=== PATIENT | male | born 1940 | race Caucasian/White ===

== ENCOUNTER 2018-10-15 07:33 | Day surgery (SDC) | payer OTHER, MEDICARE ==
[2018-10-14 08:28] VITALS: BMI 22.1
[~2018-10-15 07:33] MED LIST: ACETAMINOPHEN 325 MG TABLET (FP) PO PRN; CYCLOPENTOLATE HCL 1% OPHTH SOLN 2 ML BOTTLE OP SCH; KETOROLAC TROMETHAMINE 0.5% EYE DROP 1 DROP DROPS OP SCH; OFLOXACIN 0.3% OPHTHALMIC SOLUTION 5 ML BOTTLE OP SCH; PHENYLEPHRINE 2.5% OPHTH SOLN 15 ML BOTTLE OP SCH; TROPICAMIDE 1% OPHTH SOLN 15 ML BOTTLE OP SCH
[2018-10-15] MEDS ORDERED: PHENYLEPHRINE/KETOROLAC 4 ML VIAL IO ONE ×2 (07:45→09:21)
[2018-10-15 07:56] VITALS: BP 137/86
[2018-10-15] MEDS ORDERED: CYCLOPENTOLATE HCL 1% OPHTH SOLN 2 ML BOTTLE ONE (07:56)
[2018-10-15] MEDS ORDERED: OFLOXACIN 0.3% OPHTHALMIC SOLUTION 5 ML BOTTLE ONE (07:56)
[2018-10-15] MEDS ORDERED: PHENYLEPHRINE 2.5% OPHTH SOLN 15 ML BOTTLE ONE (07:56)
[2018-10-15] MEDS ORDERED: KETOROLAC TROMETHAMINE 0.5% EYE DROP 1 DROP DROPS ONE (07:57)
[2018-10-15] MEDS ORDERED: TROPICAMIDE 1% OPHTH SOLN 15 ML BOTTLE ONE (07:57)
[2018-10-15] MEDS ORDERED: MIDAZOLAM HCL 2 MG/2 ML SINGLE DOSE VIAL ONE (08:32)
[2018-10-15] MEDS ORDERED: TETRACAINE 0.5% OPHTH SOLN 2 ML BOTTLE OD ONE (09:06)
[2018-10-15] MEDS ORDERED: POVIDONE-IODINE 5% OPHTHALMIC PREP 30 ML SOLUTION OD ONE (09:08)
[2018-10-15] MEDS ORDERED: CHONDROITIN SU A/HYALUR SOD 1 KIT IO ONE (09:15)
[2018-10-15] MEDS ORDERED: BSS (NA/CA/MG/K) BALANCED SALT SOLUTION OPHTH SOLN 15 ML BOTTLE OD ONE (09:15)
[2018-10-15] MEDS ORDERED: LIDOCAINE HCL 1% PRESERVATIVE FREE - 30ML VIAL IO ONE (09:15)
--- NOTE | 2018-10-15 10:09 | SPEC ---
DATE OF SURGERY: 10/15/2018 OPERATION: Phacoemulsification with posterior chamber intraocular lens implantation, right eye. Lens used [id number], 20.5 Diopter power, Serial No. [id number]. PREOPERATIVE DIAGNOSIS: Cataract, right eye. POSTOPERATIVE DIAGNOSIS: Cataract, right eye. SURGEON: Marcus Freeman M.D. ANESTHESIA: Topical MAC. COMPLICATIONS: None. PROCEDURE: The patient was brought to the operating room and correctly identified along with the operative site and the correct intraocular lens roa. The patient was then prepped and draped in the usual sterile fashion including 5% Betadine solution in the conjunctival sac and an eyelid drape. An eyelid speculum was then placed in the eye. A paracentesis port was created and approximately 0.5 mL of preservative free Lidocaine was then injected into the eye. Viscoelastic was then injected to inflate the anterior chamber. A temporal clear corneal wound was created. A continuous circular capsulorrhexis was performed. The nucleus was then hydrodissected with BSS and removed with phacoemulsification. The remaining cortical material was irrigated and aspirated. Viscoelastic was injected to inflate the capsular bag and the intraocular lens was then implanted into the capsular bag. The remaining Viscoelastic was irrigated and aspirated from the eye. The IOL was noted to be well centered and completely covered by the anterior capsulorrhexis. Topical vancomycin was placed and the eye patched and shielded. All wounds were tested and found to be watertight. No suture was placed. The eye was then shielded. The patient was then discharged from the operating room in stable condition. MARCUS FREEMAN M.D. [id number]
[2018-10-15 14:18] VITALS: PULSE 85
[2018-10-15 15:23] VITALS: TEMP 98
== END 2018-10-15 11:15 | disposition home or self-care (01) ==
LOC: JASU-SURG 07:33
PROVIDERS: ATTEND Ophthalmology
PROC: 08RJ3JZ Replacement of Right Lens with Synthetic Substitute, Percutaneous Approach (ICD-10-PCS; principal; 2018-10-15 09:00)
DX: H26.9 Unspecified cataract (principal)
CPT/HCPCS: C9447

== ENCOUNTER 2018-11-05 10:38 | Day surgery (SDC) | payer OTHER, MEDICARE ==
[2018-11-03 12:48] VITALS: BMI 22.1
[~2018-11-05 10:38] MED LIST changes: +CHONDROITIN SU A/HYALUR SOD 1 KIT IO ONE; -CYCLOPENTOLATE HCL 1% OPHTH SOLN 2 ML BOTTLE OP SCH; +EPINEPHrine/PF 1 MG/1 ML (1:1,000) AMPULE SQ ONE; -KETOROLAC TROMETHAMINE 0.5% EYE DROP 1 DROP DROPS OP SCH; +LIDOCAINE HCL 1% PRESERVATIVE FREE - 30ML VIAL IO ONE; -OFLOXACIN 0.3% OPHTHALMIC SOLUTION 5 ML BOTTLE OP SCH; -PHENYLEPHRINE 2.5% OPHTH SOLN 15 ML BOTTLE OP SCH; +PHENYLEPHRINE/KETOROLAC 4 ML VIAL IO ONE; +TETRACAINE 0.5% OPHTH SOLN 2 ML BOTTLE TP ONE; -TROPICAMIDE 1% OPHTH SOLN 15 ML BOTTLE OP SCH; +VANCOMYCIN 500 MG VIAL (RESTRICTED TO ID ONLY) IVPB ONE
[2018-11-05] MEDS ORDERED: PHENYLEPHRINE 2.5% OPHTH SOLN 15 ML BOTTLE ONE (10:55)
[2018-11-05] MEDS ORDERED: OFLOXACIN 0.3% OPHTHALMIC SOLUTION 5 ML BOTTLE ONE (10:55)
[2018-11-05] MEDS ORDERED: KETOROLAC TROMETHAMINE 0.5% EYE DROP 1 DROP DROPS ONE (10:55)
[2018-11-05] MEDS ORDERED: TROPICAMIDE 1% OPHTH SOLN 15 ML BOTTLE ONE (10:55)
[2018-11-05] MEDS ORDERED: CYCLOPENTOLATE HCL 1% OPHTH SOLN 2 ML BOTTLE ONE (10:55)
[2018-11-05] MEDS: TROPICAMIDE 1% OPHTH SOLN 15 ML BOTTLE OP SCH ×3 (11:00→11:10)
[2018-11-05] MEDS: KETOROLAC TROMETHAMINE 0.5% EYE DROP 1 DROP DROPS OP SCH ×3 (11:00→11:10)
[2018-11-05] MEDS: OFLOXACIN 0.3% OPHTHALMIC SOLUTION 5 ML BOTTLE OP SCH ×3 (11:00→11:10)
[2018-11-05] MEDS: CYCLOPENTOLATE HCL 1% OPHTH SOLN 2 ML BOTTLE OP SCH ×3 (11:00→11:10)
[2018-11-05] MEDS: PHENYLEPHRINE 2.5% OPHTH SOLN 15 ML BOTTLE OP SCH ×3 (11:00→11:10)
[2018-11-05] MEDS ORDERED: MIDAZOLAM HCL 2 MG/2 ML SINGLE DOSE VIAL ONE (11:10)
[2018-11-05] MEDS ORDERED: LIDOCAINE HCL/PF 1% SDV 5ML VIAL ONE (11:16)
[2018-11-05] MEDS ORDERED: TETRACAINE 0.5% OPHTH SOLN 2 ML BOTTLE ONE (11:16)
[2018-11-05] MEDS ORDERED: CHONDROITIN SU A/HYALUR SOD 1 KIT ONE (11:17)
[2018-11-05] MEDS ORDERED: TETRACAINE 0.5% OPHTH SOLN 2 ML BOTTLE TP ONE (11:43)
[2018-11-05] MEDS ORDERED: LIDOCAINE HCL 1% PRESERVATIVE FREE - 30ML VIAL IO ONE (11:55)
[2018-11-05] MEDS ORDERED: CHONDROITIN SU A/HYALUR SOD 1 KIT IO ONE (11:56)
[2018-11-05] MEDS ORDERED: VANCOMYCIN 500 MG VIAL (RESTRICTED TO ID ONLY) IVPB ONE (12:18)
[2018-11-05 13:26] VITALS: BP 135/67; PULSE 69; TEMP 97.9
--- NOTE | 2018-11-05 15:19 | SPEC ---
DATE OF OPERATION: OPERATION: Phacoemulsification with posterior chamber intraocular lens implantation, left eye. Lens used SN60WF, 22.0 Diopter power, Serial No. [id number]. PREOPERATIVE DIAGNOSIS: Cataract, left eye. POSTOPERATIVE DIAGNOSIS: Cataract, left eye. SURGEON: Marcus Freeman M.D. ANESTHESIA: Topical MAC. COMPLICATIONS: None. PROCEDURE: The patient was brought to the operating room and correctly identified along with the operative site and the correct intraocular lens roa. The patient was then prepped and draped in the usual sterile fashion including 5% Betadine solution in the conjunctival sac and an eyelid drape. An eyelid speculum was then placed in the eye. A paracentesis port was created and approximately 0.5 mL of preservative free Lidocaine was then injected into the eye. Viscoelastic was then injected to inflate the anterior chamber. A temporal clear corneal wound was created. A continuous circular capsulorrhexis was performed. The nucleus was then hydrodissected with BSS and removed with phacoemulsification. The remaining cortical material was irrigated and aspirated. Viscoelastic was injected to inflate the capsular bag and the intraocular lens was then implanted into the capsular bag. The remaining Viscoelastic was irrigated and aspirated from the eye. The IOL was noted to be well centered and completely covered by the anterior capsulorrhexis. Topical vancomycin was placed and the eye patched and shielded. All wounds were tested and found to be watertight. No suture was placed. The eye was then shielded. The patient was then discharged from the operating room in stable condition. MARCUS FREEMAN M.D. [id number]
== END 2018-11-05 13:40 | disposition home or self-care (01) ==
LOC: JASU-SURG 10:38
PROVIDERS: ATTEND Ophthalmology
PROC: 08RK3JZ Replacement of Left Lens with Synthetic Substitute, Percutaneous Approach (ICD-10-PCS; principal; 2018-11-05 12:00)
DX: H26.9 Unspecified cataract (principal)

== ENCOUNTER 2019-04-14 12:29 | Emergency (ER) | payer OTHER, MEDICARE ==
[2019-04-14 12:37] VITALS: TEMP 98.4; BMI 23.3
[2019-04-14] MEDS ORDERED: LIDOCAINE 1%/EPI 1:100000 (20 ML MULTI DOSE VIAL) ONE (13:16)
[2019-04-14] MEDS ORDERED: LIDOCAINE 1%/EPI 1:100000 (50 ML MULTI DOSE VIAL) INF ONE (15:08)
--- NOTE | 2019-04-14 15:09 | PDOC ---
History of Present Illness <Maya Velazqueztylercristal - Last Filed: 04/14/19 15:10> - General History Source: Patient Exam Limitations: No Limitations <YajairaMaegan hurst - Last Filed: 04/15/19 10:49> - General Chief Complaint: Abscess Boil Stated Complaint: SENT BY PCP\ CYSTS UNDER RT ARM Time Seen by Provider: 04/14/19 12:43 Past History <Maya Velazqueztylercristal - Last Filed: 04/14/19 15:10> - Travel Traveled outside of the country in the last 30 days: No Close contact w/someone who was outside of country & ill: No - Past Medical History Anemia: No Asthma: No Cancer: Yes (SKIN CANCER REMOVAL HEAD) Cardiac Disorders: Yes (A-FIB) CVA: No COPD: No CHF: No Dementia: No Diabetes: No GI Disorders: No Disorders: No HTN: Yes Hypercholesterolemia: Yes Liver Disease: No Seizures: No Thyroid Disease: No - Surgical History Abdominal Surgery: No Appendectomy: No Cardiac Surgery: No Cholecystectomy: No Lung Surgery: No Neurologic Surgery: No Orthopedic Surgery: Yes (WRIST SX,KNEE INJECTIONS) - Immunization History Immunization Up to Date: No - Suicide/Smoking/Psychosocial Hx Smoking Status: No Smoking History: Never smoked Have you smoked in the past 12 months: No Number of Cigarettes Smoked Daily: 0 Information on smoking cessation initiated: No Hx Alcohol Use: No Drug/Substance Use Hx: No Substance Use Type: None Hx Substance Use Treatment: No <Maegan Pandya - Last Filed: 04/15/19 10:49> - Past Medical History Allergies/Adverse Reactions: Allergies Allergy/AdvReac Type Severity Reaction Status Date / Time No Known Allergies Allergy Verified 11/03/18 12:42 Home Medications: Ambulatory Orders Atenolol [Tenormin] 50 mg PO DAILY 07/08/12 Atorvastatin Ca [Lipitor] 20 mg PO ASDIR 07/08/12 Rivaroxaban [Xarelto -] 20 mg PO DAILY 10/14/18 Bupropion HCl [Wellbutrin Xl] 300 mg PO DAILY 11/05/18 Clonazepam [Klonopin] 1 mg PO DAILY 11/05/18 Tamsulosin HCl [Flomax] 0.4 mg PO DAILY 11/05/18 Acetaminophen [Tylenol -] 1,000 mg PO Q6H #30 tablet 04/14/19 Cephalexin Monohydrate [Keflex -] 500 mg PO TID #21 capsule 04/14/19 Sulfamethoxazole/Trimethoprim [Bactrim Ds -] 1 tab PO BID #14 tablet 04/14/19 Review of Systems - Review of Systems Able to Perform ROS?: Yes Comments:: 04/14/19 17:36 CONSTITUTIONAL: Absent: fever, chills, diaphoresis, generalized weakness, malaise, loss of appetite HEENT: Absent: rhinorrhea, nasal congestion, throat pain, throat swelling, difficulty swallowing, mouth swelling, ear pain, eye pain, visual Changes CARDIOVASCULAR: Absent: chest pain, loss of consciousness, palpitations, irregular heart rate, peripheral edema RESPIRATORY: Absent: cough, shortness of breath, dyspnea with exertion, orthopnea, wheezing, stridor, hemoptysis GASTROINTESTINAL: Absent: abdominal pain, abdominal distension, nausea, vomiting, diarrhea, constipation, melena, hematochezia GENITOURINARY: Absent: dysuria, frequency, urgency, hesitancy, hematuria, flank pain, genital pain MUSCULOSKELETAL: Absent: myalgia, arthralgia, joint swelling SKIN: Present: cellulitis/abscess Absent: itching, pallor HEMATOLOGIC/IMMUNOLOGIC: Absent: easy bleeding, easy bruising, lymphadenopathy, frequent infections ENDOCRINE: Absent: unexplained weight gain, unexplained weight loss, heat intolerance, cold intolerance NEUROLOGIC: Absent: headache, focal weakness or paresthesias, dizziness, unsteady gait, seizure, mental status changes, bladder or bowel incontinence PSYCHIATRIC: Absent: anxiety, depression, suicidal or homicidal ideation, hallucinations. Is the patient limited Estonian proficient: No <Maegan Pandya - Last Filed: 04/15/19 10:49> *Physical Exam - Vital Signs Last Vital Signs Temp Pulse Resp BP Pulse Ox 98.4 F 76 16 166/79 98 04/14/19 12:34 04/14/19 12:34 04/14/19 12:34 04/14/19 12:34 04/14/19 12:34 <Maya Velazquez - Last Filed: 04/14/19 15:10> - Vital Signs Last Vital Signs Temp Pulse Resp BP Pulse Ox 98.4 F 76 16 166/79 98 04/14/19 12:34 04/14/19 12:34 04/14/19 12:34 04/14/19 12:34 04/14/19 12:34 - Physical Exam Comments: 04/14/19 17:45 GENERAL: Well developed, well nourished. Awake and alert. No acute distress. HEENT: Normocephalic, atraumatic. PERRLA, EOMI. No conjunctival pallor. Sclera are non- icteric. Moist mucous membranes. Oropharynx is clear. NECK: Supple. Full ROM. No JVD. Carotid pulses 2+ and symmetric, without bruits. No thyromegaly. No lymphadenopathy. SKIN: [id number] fluctuant sebaceous cyst present to the R axilla, R lateral chest wall with overlying cellulitis. No active drainage. Warm and dry. Normal capillary refill. No rashes. No jaundice. NEUROLOGICAL: Alert, awake, appropriate. Cranial nerves 2-12 intact. No deficits to light touch and temperature in face, upper extremities and lower extremities. No motor deficits in the in face, upper extremities and lower extremities. Normoreflexic in the upper and lower extremities. Normal speech. Toes are down- going bilaterally. Gait is normal without ataxia. PSYCHIATRIC: Cooperative. Good eye contact. Appropriate mood and affect. <Maegan Pandya - Last Filed: 04/15/19 10:49> Medical Decision Making - Medical Decision Making 04/14/19 15:10 The patient was seen and evaluated in conjunction with midlevel provider under my direct supervision, ancillary studies were reviewed. I agree with the plan as outlined DEBRA Pandya HPI, workup/dispo as outlined. VS reviewed, wnl. Right lateral upper chest wall with very large infected-appearing cystic structure. Soft tissue ultrasound with 5 cm deep very large hypoechoic fluid collection with swirl sign consistent with large infected cyst versus abscess. We'll perform incision and drainage, packing and oral antibiotics including Keflex and Bactrim given overlying erythema. Procedures performed by DEBRA under my supervision, about 200 mL of fluid extracted via suction and manual compression area spoke with PMD, appropriate for follow-up. Today reevaluation of the wound and packing removal. Follow-up with surgery/dermatology to take care of the cystic wall to prevent recurrence. Patient and family amenable to impression and plan, wound care instructions <Maya Velazquez - Last Filed: 04/14/19 15:10> - Medical Decision Making 04/14/19 17:43 HPI: The patient is an 78 y/o M with PMH of afib on xaralto, HTN, who presents to the ER for a mass under his R axilla. He states that the mass started approximately 8 weeks ago. It grew over the past two weeks and started to be painful over the past week. He went to his primary care doctor this morning who diagnosed him with an infected sebaceous cyst. He was sent to the ER for a drainage. Denies fevers, chills, arm pain, nausea, vomiting, lightheadedness and dizziness. Pt states he did not take his blood thinner this morning A/P: Infected sebaceous cyst Right lateral upper chest wall/axilla with very large infected-appearing cystic structure. Soft tissue ultrasound performed by Dr. Velazquez and Dr. Slater. 5 cm deep, large hypoechoic fluid collection with swirl sign consistent with large infected cyst versus abscess. Verbal consent for incision and drainage obtained The R axilla was prepared with Betadine prior to incision. 20 mL of lidocaine with epi used to numb the site. Approximately 1 and 1/2 cm incision made at the base of the abscess for drainage. 200cc's of pus and blood was drained from the site with suction and manual compression. Wound culture was taken. Area was explored and loculations were broken up. The abscess was then flushed with 20 mL of normal saline. Iodinated packing was placed. Bedside US was used again, no fluid pockets, cobble stoning noted without evidence of collection. Patient placed on bactrim and keflex. Told to return in 2 days for wound care Bleeding is controlled, pressure dressing applied Explaiend to patient that this will need surgery/derm follow up to have the sac removed so this does not return Pt and family understand need for follow up DC home I discussed the physical exam findings, ancillary test results and final diagnoses with the patient. I answered all of the patient's questions. The patient was satisfied with the care received and felt comfortable with the discharge plan and treatment plan. The Patient agrees to follow up with the primary care physician/specialist within 24-72 hours. Return precautions were given. <Maegan Pandya - Last Filed: 04/15/19 10:49> *DC/Admit/Observation/Transfer <Maya Velazquez - Last Filed: 04/14/19 15:10> - Discharge Dispostion Decision to Admit order: No <Maegan Pandya - Last Filed: 04/15/19 10:49> Diagnosis at time of Disposition: Infected sebaceous cyst - Discharge Dispostion Disposition: HOME Condition at time of disposition: Stable - Prescriptions Prescriptions: Acetaminophen [Tylenol -] 1,000 mg PO Q6H #30 tablet Cephalexin Monohydrate [Keflex -] 500 mg PO TID #21 capsule Sulfamethoxazole/Trimethoprim [Bactrim Ds -] 1 tab PO BID #14 tablet - Referrals Referrals: Thelma Aceves MD [Primary Care Provider] - Steven Chirinos MD [Staff Physician] - Darwin Ling MD [Staff Physician] - - Patient Instructions Printed Discharge Instructions: DI for Incision and Drainage of a Skin Abscess Additional Instructions: You have cellulitis. You also had an abscess drained today. This is a skin infection. Please take the Bactrim and Keflex as directed. Please take all the antibiotics even if you feel better. Keep the area clen and dry Please avoid shaving the skin around the area of redness. You may take Tylenol as needed for pain. Follow the instructions on the bottle Please follow up in the ED in two days for a wound check and to have the packing replaced. Follow up with the surgeon this week. A referral has been attached for two general surgeons. As discussed, this may return if you do not have the sac containing the cyst surgically removed. Return to the emergency department if you have worsening redness, fevers, increasing pain, or have any changes in your symptoms. - Post Discharge Activity
[2019-04-14 15:24] VITALS: BP 114/75; PULSE 78
== END 2019-04-14 15:24 | disposition home or self-care (01) ==
LOC: JER 12:29
PROC: 0J960ZZ Drainage of Chest Subcutaneous Tissue and Fascia, Open Approach (ICD-10-PCS; principal; 2019-04-14)
DX: L72.3 Sebaceous cyst (principal); I10 Essential (primary) hypertension; I48.91 Unspecified atrial fibrillation; Z79.01 Long term (current) use of anticoagulants; E78.00 Pure hypercholesterolemia, unspecified; Z85.828 Personal history of other malignant neoplasm of skin
CPT/HCPCS: 10060; 87070; 87205; 99282-25

== ENCOUNTER 2019-04-16 11:27 | Emergency (ER) | payer OTHER, MEDICARE | END 2019-04-16 12:20 | disposition home or self-care (01) | LOC: JERFT 11:27 ==

== ENCOUNTER 2019-05-18 09:36 | Day surgery (SDC) | payer OTHER, MEDICARE ==
[2019-05-15 08:13] VITALS: BMI 22.7
[2019-05-18] MEDS ORDERED: MIDAZOLAM HCL 2 MG/2 ML SINGLE DOSE VIAL ONE (10:30)
[2019-05-18] MEDS ORDERED: PROPOFOL 20 ML ONE (10:30)
[2019-05-18] MEDS ORDERED: SUCCINYLCHOLINE CHLORIDE 200 MG/10 ML SYRINGE ONE (10:30)
[2019-05-18] MEDS ORDERED: ceFAZolin SODIUM 1 GM VIAL IVPB ONE (10:50)
[2019-05-18] MEDS ORDERED: KETOROLAC TROMETHAMINE 30 MG/1 ML VIAL ONE (11:11)
[2019-05-18] MEDS ORDERED: ONDANSETRON 4 MG/2 ML VIAL IVPUSH PRN (12:40)
[2019-05-18] MEDS ORDERED: oxyCODONE HCL 5 MG TABLET PO PRN (12:40)
[2019-05-18] MEDS ORDERED: ACETAMINOPHEN 1000 MG/100 ML VIAL (NON FORMULARY) IVPB ONE (12:41)
[2019-05-18] MEDS ORDERED: LACTATED RINGERS SOLUTION 1,000 ML IV SCH (12:45)
--- NOTE | 2019-05-18 13:02 | OP ---
Operative Note - Note: Operative Date: 05/18/19 Pre-Operative Diagnosis: Large right chest wall sebaceous cyst Operation: Excision of large right chest wall sebaceous cyst Findings: as dictated Post-Operative Diagnosis: Same as Pre-op Surgeon: Steven Chirinos Fire Extinguisher Charger: Aaron Solorio Anesthesiologist/TRAVEL MANAGER: Tyrell Vera Anesthesia: MAC Specimens Removed: right chest wall sebaceous cyst Estimated Blood Loss (mls): 100 (ml) Drains & Tubes with Location: Johnny drain left in place Fluid Volume Replaced (mls): 1,200 (ml) Operative Report Dictated: Yes
[2019-05-18 16:11] VITALS: BP 121/65; PULSE 62; TEMP 97.9
--- NOTE | 2019-05-19 01:05 | OP ---
DATE OF OPERATION: 05/18/2019 PREOPERATIVE DIAGNOSIS: Right axillary soft tissue mass consistent with sebaceous cyst, pending final diagnosis. POSTOPERATIVE DIAGNOSIS: Right axillary soft tissue mass consistent with sebaceous cyst, pending final diagnosis. PROCEDURE: Excision of right axillary soft tissue mass. SURGEON: Steven Chirinos MD OFFSET MACHINE OPERATOR: Aaron Solorio PA-C ANESTHESIA: General. OPERATIVE FINDINGS: There is a large ulcerating, draining, soft tissue mass in the right axilla measuring approximately 20 cm in greatest dimension. It was clinically consistent with an infected sebaceous cyst, pending final diagnosis. The overlying skin was violaceous and congested. The rest of the findings were unremarkable. DESCRIPTION OF PROCEDURE: Patient was placed on the operating table in the supine position with the right arm abducted at the right side. The axilla was prepped with betadine and draped in the sterile fashion. A timeout was taken. An elliptical incision was mapped out in the right axilla to encompass the entire overlying skin of the mass. The proximal portion of this mapped out incision was over the pectoralis major on the right side of the chest wall and distally past the latissimus dorsi muscle. Complete skin incision as made with a scalpel. Next, using electrocautery and a combination of blunt dissection, the overlying skin and mass were dissected free from the underlying axilla. The axillary vein was identified and preserved. Small arterial branches running through the posterior aspect of the mass were divided between clamps and ligated with 2-0 Vicryl suture. Dissection continued and the mass was dissected off of the latissimus dorsi muscle and the excision completed and the mass passed off of the operative field and sent for pathological examination. Hemostasis was secured with electrocautery. The right arm was partially adducted to the right side. Hemostasis was again checked for and noted to be good. The wound was copiously irrigated with sterile saline. A 10-mm Milton-Buckner drain was placed through a separate stab wound in the axilla and secured to the skin with 2-0 silk suture. The deep tissue was reapproximated with interrupted 2-0 Vicryl sutures and the deep dermis approximated with interrupted 2-0 Vicryl sutures as well. The skin edges were reapproximated with surgical jarrett and the drain connected to bulb self-suction. Dry sterile dressings were placed and the procedure terminated at this point. The patient was aroused from general anesthesia and transferred to the postanesthesia care unit in stable condition, awake, and alert. ESTIMATED BLOOD LOSS: Approximately 100 mL. REPLACEMENT: Crystalloid. DRAINS: One 10-mm Mitlon-Buckner. SPECIMEN: Right axillary soft tissue mass to Pathology. I, Steven Chirinos, was physically present in the operating room from the time the patient was placed on the operating room table until he was transferred to the postanesthesia care unit in my accompaniment. MD MAG Lazo/[id number] MTDD
--- NOTE | 2019-05-20 15:23 | PATH ---
Surgical Pathology Report Patient Name: CLEMENTE PONCE [facility]. Rec. #: [id number] /Age/Gender: 1940 (Age: 79) / M Account: [id number] Location: [facility] SURGICAL Taken: 05/18/2019 Received: 05/18/2019 Reported: 05/20/2019 Physicians: Steven Chirinos MD Specimen(s) Received SOFT TISSUE MASS, RIGHT AXILLA Clinical History Right axillary mass Final Diagnosis SOFT TISSUE MASS, AXILLA, RIGHT, EXCISION: INVASIVE SQUAMOUS CELL CARCINOMA, MODERATE TO POORLY DIFFERENTIATED, WITH EXTENSIVE NECROSIS. CARCINOMA INVOLVES OVERLYING SKIN WITH ASSOCIATED ULCERATION AND UNDERLYING LYMPH NODES. CARCINOMA MEASURES 11.8 X 10 CM IN GREATEST DIMENSION (GROSS MEASUREMENT). NO DEFINITIVE IN SITU CARCINOMA IDENTIFIED. RADIAL AND DEEP SURGICAL MARGINS ARE INVOLVED BY CARCINOMA. SEE COMMENT. Comment: Immunohistochemical stains performed show the tumor is positive for AE1/3, p63, p40, JAN, and Ramiro-Ep4 (patchy), while negative for CK7, CK20, and S100. Findings may represent primary tumor extending to axillary lymph nodes or metastatic carcinoma involving lymph nodes with extensive extranodal extension. Suggest clinical and radiologic correlation. Office of Dr. Chirinos informed of significant findings (Tony). Electronically Signed Amy Orozco M.D. Addendum Reported: 05/20/2019 Addendum Diagnosis Findings discussed with Dr. Chirinos. Amy Orozco M.D. Gross Description Received in formalin labeled "soft tissue mass of right axilla," is a 21.0 x 10.0 cm villatoro, elliptical, unoriented portion of skin excised to depth of 9.5 cm. The epidermal surface displays an 11.8 x 10.0 x 7.7 cm pink-trent, raised, ulcerated nodule involving the radial and deep margins as well as the skin. The mass is 4.5 cm from the closest undesignated tip. The cut surface of the mass is homogeneous villatoro and solid with central hemorrhage and necrosis. Clamp Operator sections are submitted in 7 cassettes as follows: 1-2-mass with radial margin; 3-4-mass with deep margin; 5-6-mass with skin; 7-undesignated tips. /05/18/2019 saudi05/18/2019
== END 2019-05-18 15:35 | disposition home or self-care (01) ==
LOC: JASU-SURG 09:36
PROVIDERS: ATTEND Surgery
PROC: 0JB60ZZ Excision of Chest Subcutaneous Tissue and Fascia, Open Approach (ICD-10-PCS; principal; 2019-05-18 11:00)
DX: C49.3 Malignant neoplasm of connective and soft tissue of thorax (principal); I10 Essential (primary) hypertension; I48.91 Unspecified atrial fibrillation; Z79.01 Long term (current) use of anticoagulants
CPT/HCPCS: 88307-TC; 88341-TC; 88342-TC; 94760; J0131